=== PATIENT | female | born 1970 | race Two or more races ===

== ENCOUNTER → 2024-10-22 | Outpatient (CLI) | payer BC, SELFPAY ==
--- NOTE | 2024-10-22 08:45 | XR_ITS ---
Examination: Screening digital mammography, bilateral Computer aided detection 3-D breast Tomosynthesis, bilateral Date and time of exam: 10/22/2024, 8:52 AM Comparisons: Not available. If prior mammograms can be obtained recommend comparison with today's exam. Indications: Screening palpable abnormality left breast. Technique: Nonmagnified MLO, CC views of the breasts to been obtained, reconstructed from 3-D Tomosynthesis images. R2 computer aided detection program utilized for evaluation of suspicious masses and/or abnormal calcifications. 3-D Tomosynthesis images obtained. Technologist: Findings: There are scattered areas of fibroglandular density. No evidence of abnormal masses or suspicious calcifications. Impression: No focal abnormality seen. Spot compression views and ultrasound evaluation of the palpable abnormality in the left breast is recommended. BI-RADS category 0: Incomplete assessment; need additional imaging evaluation
== END | disposition home or self-care (01) ==
PROVIDERS: PCP Internal Medicine; Referring Provider Internal Medicine; Visit Provider Internal Medicine
DX: Z12.31 Encounter for screening mammogram for malignant neoplasm of breast (principal); R92.8 Other abnormal and inconclusive findings on diagnostic imaging of breast
CPT/HCPCS: 77063; 77067

== ENCOUNTER → 2025-03-15 | Outpatient (CLI) | payer BC, SELFPAY ==
--- NOTE | 2025-03-15 09:46 | XR_ITS ---
Examination: Lumbar spine, 5 views Technique: Lumbar spine AP, lateral, coned lateral lower lumbar spine, bilateral obliques 5 views Exam date and time: March 15, 2025 at 1026 hours INDICATIONS: Injury to lower back one month ago with persistent lower back pain. FINDINGS: Adequate alignment lumbar vertebral bodies No lumbar fracture Mild to moderate diffuse lumbar disc narrowing Moderate lumbar spondylosis IMPRESSION: Mild to moderate diffuse lumbar degenerative disc disease
== END | disposition home or self-care (01) ==
LOC: CDIM 09:33
PROVIDERS: PCP Internal Medicine; Referring Provider Internal Medicine; Visit Provider Internal Medicine
DX: M51.360 Other intervertebral disc degeneration, lumbar region with discogenic back pain only (principal); S39.92XA Unspecified injury of lower back, initial encounter; X58.XXXA Exposure to other specified factors, initial encounter
CPT/HCPCS: 72110

== ENCOUNTER → 2025-04-01 | Outpatient (CLI) | payer BC, SELFPAY ==
--- NOTE | 2025-04-01 08:00 | XR_ITS ---
Examination: Breast ultrasound, unilateral, left Date and time of exam: April 01, 2025 0823 hours INDICATIONS: Patient states left breast lump 8 months, family history breast cancer Technique: Real-time meyers scale ultrasonographic imaging performed left breast including all 4 quadrants as well as nipple retroareolar and axillary region. Findings: 4:00 cyst 7 x 6 mm 6:00 cyst 7 x 7 mm 9:00 cyst 4 x 5 mm Retroareolar nodule circumscribed 5 x 6 mm IMPRESSION: BI-RADS Category 3: Probably benign findings One additional 6 month left breast sonogram follow-up is needed to document stability of retroareolar solid nodule described above.
--- NOTE | 2025-04-01 08:30 | XR_ITS ---
Examination: Diagnostic digital mammography, unilateral, LEFT Computer aided detection 3-D breast Tomosynthesis, unilateral Date and time of exam: April 01, 2025 0839 hours INDICATIONS: History palpable lump left breast Technique: Nonmagnified MLO, CC views of the left breast have been obtained, reconstructed from 3-D Tomosynthesis images. R2 computer aided detection program utilized for evaluation of suspicious masses and/or abnormal calcifications. 3-D Tomosynthesis images obtained. Findings: Scattered areas of fibroglandular density No suspicious mass noted on the spot compression views Impression: BI-RADS category 2: Benign findings Recommend yearly follow-up mammography Please see the left breast report and recommendations today, requiring 6 month follow-up
== END | disposition home or self-care (01) ==
LOC: CDIM 08:09
PROVIDERS: PCP Internal Medicine; Referring Provider Internal Medicine; Visit Provider Internal Medicine
DX: R92.322 Mammographic fibroglandular density, left breast (principal); N63.42 Unspecified lump in left breast, subareolar
CPT/HCPCS: 76641; 77061; 77065; G0279